=== PATIENT | male | born 1950 | race Caucasian/White ===

== ENCOUNTER 2019-01-28 07:44 | Outpatient (CLI) | payer MEDICARE ==
[2019-01-28] MEDS ORDERED: REGADENOSON 0.4 MG/5 ML SYRINGE ONE (12:18)
== END 2019-01-28 23:59 | disposition home or self-care (01) ==
LOC: CFH 07:44
PROVIDERS: ATTEND Internal Medicine Cardiovascular Disease
DX: I34.0 Nonrheumatic mitral (valve) insufficiency (principal); I10 Essential (primary) hypertension; Z85.46 Personal history of malignant neoplasm of prostate; Z92.3 Personal history of irradiation
CPT/HCPCS: 78452; 93017; 93306; A9502; J2785